=== PATIENT | male | born 1960 | race Hispanic/Latino ===

== ENCOUNTER → 2017-11-28 | Outpatient (CLI) | payer MEDICARE ==
[~2017-11-28] MED LIST: ERGO400T7 PO; FISH1CAP27 PO; GLIP5TAB11 PO; IBUP-2070 PO; LEVO200T10 PO; LEVO500S PO; LINA5TAB PO; LISI-617 PO; METF10004 PO; OMEP40CA37 PO; ROSU40 PO
== END | disposition home or self-care (01) ==
LOC: RAH 08:40
PROVIDERS: ATTEND Nurse Practitioner Family
DX: M19.012 Primary osteoarthritis, left shoulder (principal); M19.011 Primary osteoarthritis, right shoulder; M19.072 Primary osteoarthritis, left ankle and foot; M19.071 Primary osteoarthritis, right ankle and foot; I70.90 Unspecified atherosclerosis; M79.89 Other specified soft tissue disorders
CPT/HCPCS: 73030; 73610

== ENCOUNTER → 2018-09-09 | Outpatient (CLI) | payer MEDICARE ==
[~2018-09-09] MED LIST changes: +METF-446 PO; -METF10004 PO
== END | disposition home or self-care (01) ==
LOC: SHCH 10:58
PROVIDERS: ATTEND Internal Medicine Cardiovascular Disease
DX: I65.23 Occlusion and stenosis of bilateral carotid arteries (principal); I11.9 Hypertensive heart disease without heart failure; I35.8 Other nonrheumatic aortic valve disorders
CPT/HCPCS: 93306; 93880

== ENCOUNTER → 2021-10-05 | Outpatient (CLI) | payer OTHER ==
[~2021-10-05] MED LIST changes: +IOHEXOL 350 MG/ML 100ML INFUS..BTL IV ONE; -LISI-617 PO; +LISI5TAB21 PO; +METOPROLOL TARTRATE 1 MG/ML 5ML VIAL IV ONE; +OMEP40CA21 PO; -OMEP40CA37 PO
== END | disposition home or self-care (01) ==
LOC: RAH 07:29
PROVIDERS: ATTEND Family Medicine
DX: I25.10 Atherosclerotic heart disease of native coronary artery without angina pectoris (principal)
CPT/HCPCS: 75574; J3490; Q9967

== ENCOUNTER 2022-03-07 09:14 | Emergency (ER) | payer OTHER ==
[~2022-03-07] VITALS: Ht 175.3 cm; Wt 124.7 kg
[~2022-03-07 09:14] MED LIST changes: -IOHEXOL 350 MG/ML 100ML INFUS..BTL IV ONE; -METOPROLOL TARTRATE 1 MG/ML 5ML VIAL IV ONE
[2022-03-07] MEDS ORDERED: ALBU8.5H8 IH (12:01)
[2022-03-07] MEDS ORDERED: D-ME1POW16 PO (12:01)
[2022-03-07 12:13] VITALS: BP 117/62
== END 2022-03-07 12:16 | disposition home or self-care (01) ==
LOC: EDH 09:14
DX: U07.1 COVID-19 (principal); J06.9 Acute upper respiratory infection, unspecified; E11.9 Type 2 diabetes mellitus without complications; E78.00 Pure hypercholesterolemia, unspecified; I10 Essential (primary) hypertension; M19.90 Unspecified osteoarthritis, unspecified site; E66.01 Morbid (severe) obesity due to excess calories; Z79.1 Long term (current) use of non-steroidal anti-inflammatories (NSAID); Z79.84 Long term (current) use of oral hypoglycemic drugs; Z79.899 Other long term (current) drug therapy; Z88.0 Allergy status to penicillin; Z90.49 Acquired absence of other specified parts of digestive tract; Z68.41 Body mass index [BMI] 40.0-44.9, adult
CPT/HCPCS: 99283; 87635; 87880; 87804 ×2; C9803

== ENCOUNTER → 2022-08-07 | Outpatient (CLI) | payer OTHER ==
[~2022-08-07] MED LIST changes: +AEC81 PO; +ALBU8.5H8 IH; +ATOR40TA69 PO; +AZEL6DRO6 OP; +BUPR-317 PO; +D-ME1POW16 PO; +EMPA1TAB7 PO; +EZET10TA48 PO; +FENO145T26 PO; +INSU500V SQ; +LEVO150C4 PO; +LISI10TA24 PO; +METO25TA6 PO; +NITR0.4T50 SL; +SEMA2PEN SQ
[2022-08-07 09:46] LABS: BASOPHILS % (AUTO) 0.7 % (0.0-5.0); EOSINOPHILS % (AUTO) 3.2 % (0.0-8.0); HEMATOCRIT 38.1 % (42-54); LYMPHOCYTES % (AUTO) 13.4 % (21.0-51.0); MEAN CORPUSCULAR HEMOGLOBIN 28.5 pg (27.0-33.0); MEAN CORPUSCULAR HGB CONC 32.3 g/dL (32.0-36.0); MEAN CORPUSCULAR VOLUME 88.4 fL (79-99); MONOCYTES % (AUTO) 5.5 % (3.0-13.0); NEUTROPHILS % (AUTO) 76.4 % (40.0-77.0); PLATELET COUNT (AUTO) 315 K/uL (130-400); RED BLOOD CELL COUNT(AUTO) 4.31 MIL/uL (4.50-6.20); RED CELL DISTRIBUTION WIDTH 13.2 % (11.0-15.5)
[2022-08-07 10:13] LABS: ALBUMIN 3.8 g/dL (3.5-5.0); CREATININE 1.3 mg/dL (0.5-1.5); POTASSIUM 4.2 mmol/L (3.5-5.1); THYROID STIMULATING HORMONE 6.68 uIU/mL (0.36-3.74); TOTAL PROTEIN, SERUM 7.3 g/dL (6.0-8.3)
== END | disposition home or self-care (01) ==
LOC: LAB 09:01
PROVIDERS: ATTEND Family Medicine
DX: E03.9 Hypothyroidism, unspecified (principal); R07.9 Chest pain, unspecified
CPT/HCPCS: 36415; 80053; 84439; 84443; 84484; 85025

== ENCOUNTER → 2024-03-09 | Outpatient (CLI) | payer OTHER ==
[~2024-03-09] MED LIST changes: -ALBU8.5H8 IH; -BUPR-317 PO; +BUPR-561 PO; -D-ME1POW16 PO; -ERGO400T7 PO; -FISH1CAP27 PO; -GLIP5TAB11 PO; +HYDR25TA PO; -IBUP-2070 PO; -LEVO200T10 PO; -LEVO500S PO; -LINA5TAB PO; -LISI5TAB21 PO; -METF-446 PO; -ROSU40 PO
== END | disposition home or self-care (01) ==
LOC: SHCH 07:35
PROVIDERS: ATTEND Internal Medicine Cardiovascular Disease
DX: I08.2 Rheumatic disorders of both aortic and tricuspid valves (principal); I25.10 Atherosclerotic heart disease of native coronary artery without angina pectoris
CPT/HCPCS: 93306

== ENCOUNTER → 2024-03-11 | Outpatient (CLI) | payer OTHER | END | disposition home or self-care (01) | LOC: RESP 14:47 | PROVIDERS: ATTEND Internal Medicine Cardiovascular Disease | DX: R06.00 Dyspnea, unspecified (principal) | CPT/HCPCS: 94060 ==

== ENCOUNTER → 2025-03-16 | Outpatient (CLI) | payer OTHER ==
[~2025-03-16] MED LIST changes: -BUPR-561 PO; +BUPR-721 PO; -LEVO150C4 PO; +LEVO150C5 PO
--- NOTE | 2025-03-16 16:18 | HMCIMG ---
EXAM: US Duplex Left Lower Extremity Veins. CLINICAL HISTORY: Left leg pain. TECHNIQUE: Real-time ultrasound scan of the veins of the left lower extremity with color Doppler flow, spectral waveform analysis, and compression. COMPARISON: None provided. FINDINGS: DEEP VEINS: The common femoral, profunda femoris, superficial femoral (proximal, mid, distal), popliteal, and posterior tibial veins are patent. These vessels demonstrate normal compressibility, spontaneous flow, color filling, and augmentation. No evidence of deep venous thrombosis (DVT). SUPERFICIAL VEINS: The great saphenous vein is patent with normal compressibility and flow. SOFT TISSUES: Complex fluid collection noted in the posterior medial left calf, measuring approximately 9.3 x 1.4 x 3.7 cm. Appearance consistent with a ruptured Alicia's cyst. IMPRESSION: 1. No evidence of DVT in the left lower extremity. 2. Complex fluid collection in the posterior medial calf, compatible with a ruptured Alicia???s cyst. /[place]
== END | disposition home or self-care (01) ==
LOC: RAH 13:47
PROVIDERS: ATTEND Family Medicine
DX: M66.0 Rupture of popliteal cyst (principal); M79.605 Pain in left leg
CPT/HCPCS: 93971

== ENCOUNTER → 2025-06-24 | Outpatient (CLI) | payer OTHER ==
[~2025-06-24] MED LIST changes: -EZET10TA48 PO; +EZET10TA80 PO
--- NOTE | 2025-06-24 18:15 | HMCIMG ---
EXAM: MR Left Lower Extremity without IV contrast, Knee. CLINICAL HISTORY: M23.92 Unspecified internal derangement of left knee. TECHNIQUE: Multisequence, multiplanar magnetic resonance images of the left knee without intravenous contrast. Series acquired: 4 - AX T2 - TR: 4792.0 - TE: 99.8 - ET: 21.0 - Thk: 4.0 5 - AX T1 - TR: 694.0 - TE: 16.5 - ET: 4.0 - Thk: 4.0 6 - AX 2D MERGE - TR: 876.0 - TE: 15.2 - ET: 4.0 - Thk: 4.0 7 - COR PD - TR: 2883.0 - TE: 17.4 - ET: 9.0 - Thk: 3.0 8 - COR PD FS - TR: 2793.0 - TE: 16.2 - ET: 6.0 - Thk: 3.0 9 - COR 2D MERGE - TR: 1143.0 - TE: 14.7 - ET: 5.0 - Thk: 4.5 10 - SAG PD - TR: 2698.0 - TE: 14.8 - ET: 8.0 - Thk: 3.0 11 - SAG T2 - TR: 5381.0 - TE: 103.3 - ET: 19.0 - Thk: 3.0 CONTRAST: None. COMPARISON: None provided. FINDINGS: LIGAMENTS: ANTERIOR CRUCIATE: Intact fibers with mucoid degeneration. POSTERIOR CRUCIATE: Partial thickness intrasubstance tear with hemorrhage. LATERAL COLLATERAL: Intact. MEDIAL COLLATERAL: Intact. TENDONS: QUADRICEPS: Intact. PATELLAR: Intact. LATERAL GASTROCNEMIUS: Intact. MEDIAL GASTROCNEMIUS: Intact. ILIOTIBIAL BAND: Intact. POPLITEUS: Intact. BONES: No acute fracture or aggressive osseous lesion. Subchondral reactive changes corresponding to joint space narrowing. MUSCLES: No focal muscular tear. Mild periarticular muscular edema may be present secondary to adjacent joint pathology. FLUID: Gross knee joint effusion with suprapatellar extension. Synovial thickening and frond-like/filiform projections compatible with synovitis. Bakers cyst in the popliteal fossa measuring approximately 4.7 x 2.8 x 6.9 cm. CARTILAGE: Diffuse chondral thinning with reduced tibiofemoral and patellofemoral joint spaces, most pronounced in the medial compartment, compatible with osteoarthritic change. MENISCI: Medial meniscus demonstrates degenerative signal with a complex tear involving the body and posterior horn. Lateral meniscus demonstrates degenerative signal with a complex tear involving the anterior horn, body, and posterior horn. RETINACULA: Medial and lateral patellar retinacula are intact. 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 * Large knee joint effusion with suprapatellar extension, synovitis with filiform synovial projections, and a sizable Bakers cyst measuring approximately 4.7 x 2.8 x 6.9 cm, in keeping with degenerative/internal derangement of the left knee. Partial thickness tear of the PCL may be the cause. /[place]
== END | disposition home or self-care (01) ==
LOC: RAH 09:54
PROVIDERS: ATTEND Student in an Organized Health Care Education/Training Program
DX: S83.242A Other tear of medial meniscus, current injury, left knee, initial encounter (principal); S83.282A Other tear of lateral meniscus, current injury, left knee, initial encounter; M23.92 Unspecified internal derangement of left knee; M17.12 Unilateral primary osteoarthritis, left knee; M25.462 Effusion, left knee; M65.962 Unspecified synovitis and tenosynovitis, left lower leg; X58.XXXA Exposure to other specified factors, initial encounter; Y93.89 Activity, other specified; Y92.89 Other specified places as the place of occurrence of the external cause; Y99.8 Other external cause status
CPT/HCPCS: 73721